=== PATIENT | female | born 1975 | race American Indian/Alaskan Native ===

== ENCOUNTER 2016-03-14 16:46 | Inpatient (IN) | payer MEDICAID ==
[2016-03-14] MEDS ORDERED: TYLENOL PO PRN (16:52)
[2016-03-14] MEDS ORDERED: DEEP SEA NS PRN (16:52)
[2016-03-14] MEDS ORDERED: AMBIEN PO PRN (16:52)
[2016-03-14] MEDS ORDERED: MILK OF MAGNESIA PO PRN (16:52)
[2016-03-14] MEDS ORDERED: ROBITUSSIN DM PO PRN (16:52)
[2016-03-14] MEDS ORDERED: TUCKS PAD TP PRN (16:52)
[2016-03-14] MEDS ORDERED: BENADRYL PO PRN (16:52)
[2016-03-14] MEDS ORDERED: MYLICON PO PRN (16:52)
[2016-03-14] MEDS ORDERED: ALUM-MAG HYDROX-SIMETH 200-200-20MG/5ML PO PRN (16:52)
[2016-03-14] MEDS ORDERED: COLACE PO PRN (16:52)
[2016-03-14] MEDS ORDERED: ZOFRAN IV PRN (16:52)
--- NOTE | 2016-03-14 17:05 | History and Physical Report ---
History of Present Illness Date of examination: 03/14/16 Date of admission: 03/14/16 16:46 Chief complaint: direct admit from office: pt was seen at [facility] 03/09 and found to have a short cervix (1.5cm) without funnelling. u/s in our office today shows funnelling and CL of 0.5cms. History of present illness: EDC Confirmation: 07/30/2016 Gestational Age: 8 2/7 weeks Past History : 5 Term Births: 2 Premature Births: 0 Living Children: 2 Para: 2 Mult. Births: 0 Aborta: 2 Elect. Ab: 1 Spont. Ab: 1 # 1 Delivery date: 1994 Weeks Gestation: 40 Delivery type: Infant Sex: Male Comments: bed rest, cervical dilation # 2 Delivery date: 1997 Weeks Gestation: 42 Delivery type: Infant Sex: Male Comments: Bed rest, previa that resolved # 3 Delivery date: 1993 Delivery type: SAB Comments: D&C # 4 Delivery date: 2000 Delivery type: EAB Comments: septic, required hospitilaztion 2 weeks after Past Medical History: PID - 17 years ago 1998 -pt states admitted to hospital for 2 weeks d/t chlamydia and received "40 bags of penicillin" Norplant placed 1995 - never removed. Septic 2000 - required hospitization Anemia HTN Anxiety Peripheral Neuropathy - hand and leg numbness - dx 12/[address] 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 of genital herpes: no Partner hx. of genital herpes: no Rash, Viral, or Febrile illness since last LMP? no Varicella/Chicken Pox Status: Previous Disease TB Risk: no Infection History Comments: HX of gc/ch, PID Genetic History ADVANCED MATERNAL AGE Congenital Heart Defect: Mom: no Dad: no Mar Disease: Mom: no Dad: no Thalassemia Mom: no Dad: no Neural Tube Defect Mom: no Dad: no Down's Syndrome Mom: no Dad: no Eduardo-Sachs Mom: no Dad: no Sickle Cell Disease/Trait Mom: yes Dad: unknown Comments: pt + SST, FOc never been tested Hemophilia Mom: no Dad: no Muscular Dystrophy Mom: no Dad: no Cystic Fibrosis Mom: no Dad: no Darin Chorea Mom: no Dad: no Mental Retardation Mom: no Dad: no Fragile X Mom: no Dad: no Other Genetic/Chromosomal Disorder Mom: no Dad: no Child w/other defect Mom: no Dad: no Enviromental Exposures Xray Exposure: no Medication, drug, or alcohol use since LMP: no Chemical/Other Exposure: no Exposure to Cat Liter: no Hx of Parvovirus (Fifth Disease): no Occupational Exposure to Children: none Current Allergies (reviewed today): No known allergies Past History - Obstetrical History Expected Date of Delivery: 07/30/16 Actual Gestation: 20 Week(s) 2 Day(s) : 5 Para: 2 Hx # Term Pregnancies: 2 Number of Pregnancies: 0 Spontaneous Abortions: 1 Induced : 1 Number of Living Children: 2 Medications and Allergies Allergies Allergy/AdvReac Type Severity Reaction Status Date / Time No Known Allergies Allergy Verified 01/26/16 14:41 Home Medications Medication Instructions Recorded Confirmed Last Taken Type Vit No.130/Iron/FA 1 each PO DAILY #30 tablet 12/16/15 Unknown Rx [ Tablet] Acetaminophen [Tylenol] 1,000 mg PO Q8HR #20 tablet 01/26/16 Unknown Rx Ondansetron [Zofran TAB] 4 mg PO Q8HR PRN #14 tablet 01/26/16 Unknown Rx Active Meds: Active Medications Acetaminophen (Tylenol) 650 mg PO Q4H PRN PRN Reason: Pain MILD(1-3)/Fever >100.5/BISHOP Al Hydrox/Mg Hydrox/Simethicone (Alum-Mag Hydrox-Simeth [id number]/5ml) 30 ml PO Q6H PRN PRN Reason: Indigestion Diphenhydramine HCl (Benadryl) 25 mg PO Q6H PRN PRN Reason: Itching Docusate Sodium (Colace) 100 mg PO Q12H PRN PRN Reason: Constipation Guaifenesin (Robitussin Dm) 10 ml PO Q6H PRN PRN Reason: Cough Magnesium Hydroxide (Milk Of Magnesia) 30 ml PO QHS PRN PRN Reason: Laxative Effect Multivitamins/Iron/Calcium ( Vitamin) 1 each PO QDAY SHAUNNA Ondansetron HCl (Zofran) 4 mg IV Q6H PRN PRN Reason: Nausea And Vomiting Simethicone (Mylicon) 80 mg PO Q6H PRN PRN Reason: Gas pain Sodium Chloride (Deep Sea) 2 spray NS Q4H PRN PRN Reason: Congestion Witch Gabriela/Glycerin (Tucks Pad) 1 each TP PRN PRN PRN Reason: Hemorrhoids Zolpidem Tartrate (Ambien) 10 mg PO ONCE PRN PRN Reason: Sleep Review of Systems All systems: negative - Physical Exam Breasts: Positive: normal Cardiovascular: Regular rate Lungs: Positive: Clear to auscultation, Normal air movement Abdomen: Positive: normal appearance, soft, normal bowel sounds Genitourinary (Female): Positive: normal external genitalia, normal perenium Vulva: both: normal Vagina: Positive: normal moisture Cervix: Positive: other (u/s exam showed funnelling and CL of 0.5cms) Uterus: Positive: normal size Adnexa: both: normal Extremities: Positive: normal - Obstetrical FHR: auscultation normal Results All other labs normal. Laboratory Data-Patient Name: FRITZ MARTINEZ Test Date Result Blood Type 01/18/2016 O Rh 01/18/2016 Positive Antibody Screen Negatiev Rubella 01/18/2016 Immune Serology (RPR) 01/18/2016 Non-reactive HBsAg 01/18/2016 Negative Hemoglobin 01/18/2016 11.9 Hematocrit 01/18/2016 36.8 Platelets 01/18/2016 251 [id number] Chlamydia DNA 12/21/2015 Negative GC DNA/Culture 12/21/2015 Urine Culture 01/18/2016 Final report Group B Strep cult not done at this time PAP 12/21/2015 Normal, Satisfactory, No endocervical cells HIV 01/18/2016 AFP/Quad Screen 02/15/2016 Glucola Test 3hr GTT (Fasting) 1 hr 2 hr 3 hr [facility]-Patient Name:FRITZ MARTINEZ Test Date Result Varicella Ab Sickle Cell 01/18/2016 Negative PPD Fibronectin Cystic Fibrosis Parvovirus TSH Free T4 Hepatitis C ALT 02/17/2016 16 AST 02/17/2016 17 Uric Acid Creatinine 02/17/2016 0.62 24 hr Urine Protein LAZARO Assessment and Plan 40y/o @ 20w2d with cervical shortening and funnelling, plan for repeat u/ s for CL and funnelling, AMFM consult ordered for AM along with NICU consult. Plan for bed rest with bathroom privileges only. Plan of care developed with Dr. Hernandez. - Patient Problems (1) 20 weeks gestation of Current Visit: Yes Status: Acute (2) Advanced maternal age (AMA) in Current Visit: Yes Status: Acute (3) Cervical funneling affecting in second trimester Current Visit: Yes Status: Acute (4) HTN in , chronic Current Visit: Yes Status: Acute (5) Obesity affecting in second trimester Current Visit: Yes Status: Acute (6) Short cervix during in second trimester Current Visit: Yes Status: Acute
--- NOTE | 2016-03-14 18:14 | Event Note ---
Date: 03/14/16 Pt admitted for observation due to have cervical change on sonogram in office from last week's visit with MFM. Cx now 0.5cm with funneling noted on sono. As per provider in the office, pt did admit to having the vaginal progesterone that was recommended last wee. Pt will get repeat sono once admitted for comparison and MFM consultation as [facility] Will await further recommendations at this time.
--- NOTE | 2016-03-14 19:04 | Event Note ---
Date: 03/14/[address] Augustin and it was noted that the residual cl was 0.6 in the office on Saturday03/09/16 and not 1.5cm. The measurement today was0.5cm in our office which is stable. Based upon this, we will monitor pt overnight and repeat CL in the am and if no change will plan for d/c home on vaginal progesterone as recommended by MFM. Pt is aware of plan of care and all questions were addressed and answered.
--- NOTE | 2016-03-15 09:04 | Progress Note ---
Assessment and Plan A: 1. IUP at 20 5/7 weeks gestation 2. Cervical shortening 3. Chronic HTN, not on medication 4. AMA (negative cell free DNA screen) 5. Obesity Recommendations For repeat TVUS to assess cervical length, consider outpatient expectant management if stable Continue vaginal progesterone qhs until 36 weeks gestation Continue to monitor her BP, no indication for antihypertensive therapy Next [facility] appt is 03/19/2016 at 100pm Subjective - Subjective Date of service: 03/15/16 Principal diagnosis: IUP at 20 5/7 , Cervical shortening Interval history: She denies increased pressure, bleeding, cramping or LOF Objective - Vital Signs Vital Signs: Vital Signs - 12hr 03/14/16 03/14/16 03/14/16 20:58 23:00 23:05 Temperature 98.1 F Pulse Rate 90 Pulse Rate [ From Monitor] Respiratory 20 22 Rate Blood Pressure 109/59 Blood Pressure [Right Arm] 03/15/16 03/15/16 08:07 08:08 Temperature 97.8 F Pulse Rate 86 Pulse Rate [ 86 From Monitor] Respiratory 18 Rate Blood Pressure 117/61 Blood Pressure 117/61 [Right Arm] - Exam Narrative Exam: laying in bed Abdomen: Present: normal appearance, soft (non tender no palpable contractions ) Uterine Contraction Monitor Mode: External (no contractions) Extremities: normal (no c/c/e)
[2016-03-15] MEDS: PRENATAL VITAMIN PO SCH (09:51)
--- NOTE | 2016-03-15 13:08 | Ultrasound Report ---
The limited OB ultrasound: There is a lees intrauterine gestation in cephalic position with a heart rate of 152 beats per minute. The cervical length is 5 mm. There appears to be a soft tissue mass measuring 2.3 cm in the dilated cervical canal just superior to the closed portion. No other information obtained.
--- NOTE | 2016-03-15 13:55 | Progress Note ---
Assessment and Plan - Patient Problems (1) 20 weeks gestation of Current Visit: Yes Status: Acute Plan to address problem: M Recommendations: For repeat TVUS to assess cervical length, consider outpatient expectant management if stable Continue vaginal progesterone qhs until 36 weeks gestation Continue to monitor her BP, no indication for antihypertensive therapy Next [facility] appt is 03/19/2016 at 100pm (2) Advanced maternal age (AMA) in Current Visit: Yes Status: Acute (3) Cervical funneling affecting in second trimester Current Visit: Yes Status: Acute Plan to address problem: She will continue vaginal progesterone qhs (4) HTN in , chronic Current Visit: Yes Status: Acute (5) Obesity affecting in second trimester Current Visit: Yes Status: Acute (6) Short cervix during in second trimester Current Visit: Yes Status: Acute Plan to address problem: Patient desires to remain hospitalized for bedrest. [facility] recommendations extensively reviewed with patient. She was informed that bed rest runs a risk of increasing her morbidity possible mortality due to increased risk for development of DVTs or pulmonary embolism especially with her body mass index and . Also explained potential risk of prolonged hospitalization. Patient is adamant that she should remain on bed rest. Patient does not work. She was informed that it is her option to remain on bed rest however bed rest in the hospital is no different than bedrest at home. She was offered a second opinion with another perinatologist. Subjective - Subjective Date of service: 03/15/16 Principal diagnosis: IUP at 20 5/7 , Cervical shortening Patient reports: no new complaints, no loss of fluid, no vaginal bleeding, no contractions Objective - Vital Signs Vital Signs: Vital Signs - 12hr 03/15/16 03/15/16 03/15/16 08:07 08:08 11:30 Temperature 97.8 F 98.5 F Pulse Rate 86 99 H Pulse Rate [ 86 99 H From Monitor] Respiratory 18 18 Rate Blood Pressure 117/61 111/56 Blood Pressure 117/61 111/56 [Right Arm] - Exam Breasts: deferred Lungs: Clear to auscultation Abdomen: Present: normal appearance, soft - Results US- obstetric: report reviewed
[2016-03-15] MEDS ORDERED: REGLAN PO PRN (22:57)
--- NOTE | 2016-03-16 08:51 | Progress Note ---
Assessment and Plan Patient resting without complaints, plan of care discussed including d/c home for the risks discussed by Dr. Coronel. Patient states she would agree to go home after another CL performed today showed no change. Dr. sams consulted , u/s ordered. - Patient Problems (1) 20 weeks gestation of Current Visit: Yes Status: Acute (2) Advanced maternal age (AMA) in Current Visit: Yes Status: Acute (3) Cervical funneling affecting in second trimester Current Visit: Yes Status: Acute Plan to address problem: repeat u/s this morning for CL (4) HTN in , chronic Current Visit: Yes Status: Acute Plan to address problem: VSS, no indication for antihypertensive medication at this time Will continue to monitor. (5) Obesity affecting in second trimester Current Visit: Yes Status: Acute (6) Short cervix during in second trimester Current Visit: Yes Status: Acute Subjective - Subjective Date of service: 03/16/16 Principal diagnosis: IUP at 20 6/7 , Cervical shortening Interval history: EDC Confirmation: 07/30/2016 Gestational Age: 8 2/7 weeks Past History : 5 Term Births: 2 Premature Births: 0 Living Children: 2 Para: 2 Mult. Births: 0 Aborta: 2 Elect. Ab: 1 Spont. Ab: 1 # 1 Delivery date: 1994 Weeks Gestation: 40 Delivery type: Infant Sex: Male Comments: bed rest, cervical dilation # 2 Delivery date: 1997 Weeks Gestation: 42 Delivery type: Sex: Male Comments: Bed rest, previa that resolved # 3 Delivery date: 1993 Delivery type: SAB Comments: D&C # 4 Delivery date: 2000 Delivery type: EAB Comments: septic, required hospitilaztion 2 weeks after Past Medical History: PID - 17 years ago 1998 -pt states admitted to hospital for 2 weeks d/t chlamydia and received "40 bags of penicillin" Norplant placed 1995 - never removed. Septic 2000 - required hospitization Anemia HTN Anxiety Peripheral Neuropathy - hand and leg numbness - dx 12/[address] 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 of genital herpes: no Partner hx. of genital herpes: no Rash, Viral, or Febrile illness since last LMP? no Varicella/Chicken Pox Status: Previous Disease TB Risk: no Infection History Comments: HX of gc/ch, PID Genetic History ADVANCED MATERNAL AGE Congenital Heart Defect: Mom: no Dad: no Mar Disease: Mom: no Dad: no Thalassemia Mom: no Dad: no Neural Tube Defect Mom: no Dad: no Down's Syndrome Mom: no Dad: no Eduardo-Sachs Mom: no Dad: no Sickle Cell Disease/Trait Mom: yes Dad: unknown Comments: pt + SST, FOc never been tested Hemophilia Mom: no Dad: no Muscular Dystrophy Mom: no Dad: no Cystic Fibrosis Mom: no Dad: no [place] Chorea Mom: no Dad: no Mental Retardation Mom: no Dad: no Fragile X Mom: no Dad: no Other Genetic/Chromosomal Disorder Mom: no Dad: no Child w/other defect Mom: no Dad: no Enviromental Exposures Xray Exposure: no Medication, drug, or alcohol use since LMP: no Chemical/Other Exposure: no Exposure to Cat Liter: no Hx of Parvovirus (Fifth Disease): no Occupational Exposure to Children: none Current Allergies (reviewed today): No known allergies Patient reports: movement normal, no new complaints, no loss of fluid, no vaginal bleeding, no contractions Objective - Vital Signs Vital Signs: Vital Signs - 12hr 03/15/16 03/16/16 23:11 08:31 Pulse Rate 94 H 82 Blood Pressure 118/58 104/57 - Exam Breasts: normal Cardiovascular: Regular rate Lungs: Clear to auscultation, Normal air movement Abdomen: Present: normal appearance, soft Vulva: both: normal Uterus: Present: normal Uterine Contraction Monitor Mode: External Uterine Contraction Pattern: Absent Uterine Tone Measurement Phase: Resting Extremities: normal Deep Tendon Reflex Grade: Normal +2
[2016-03-16] MEDS: PRENATAL VITAMIN PO SCH (10:00)
--- NOTE | 2016-03-16 15:39 | Discharge Summary ---
[id number] 03/16/16 Attending physician: AMAN WEI 03/14/16 16:52 Consult to Physician [CONS] Routine Consulting Provider: MARINE MEIER Reason For Exam: Short cervix w/ funneling Place consult to:: [facility]FM Notified:: Phone number called:: [phone] Was contact made?: Yes If yes, spoke with:: 03/14/16 16:57 Consult to Physician [CONS] Routine Consulting Provider: RAIN BELLO Reason For Exam: Short cervix with funnelling Place consult to:: NICU consult Notified:: CALEB Phone number called:: [phone] Was contact made?: Yes If yes, spoke with:: CALEB Time called:: 17:35 Comment:: . Primary care physician: AMAN WEI Hospitalization Hospital course: Please see H&P for details. She was admitted with the diagnoses of shortened cervix and cervical funneling. Patient was placed on bed rest and risks with sterile ultrasounds exam did not show significant worsening. Patient had long conversation with both our practice and a [facility] about the benefits of in-hospital observation versus at-home observations and increased risks of infection with hospital stay. Patient also informed that there was no benefit of vitamin Hospital delivery at this gestational age. All patient's questions were answered. Patient's anxiousness and concern suspected. Patient has a follow-up appointment with a [facility] on March 19. Disposition: DISCHARGED TO HOME OR SELFCARE - Discharge Diagnoses (1) 20 weeks gestation of Status: Acute (2) Advanced maternal age (AMA) in Status: Acute (3) Cervical funneling affecting in second trimester Status: Acute (4) HTN in , chronic Status: Acute (5) Obesity affecting in second trimester Status: Acute (6) Short cervix during in second trimester Status: Acute Core Measure Documentation - Palliative Care Palliative Care/ Comfort Measures: Not Applicable - Core Measures Any of the following diagnoses?: none Exam - Constitutional Vitals: Temp Pulse Resp BP Pulse Ox 97.5 F L 86 20 109/55 03/16/16 08:30 03/16/16 12:16 03/16/16 08:30 03/16/16 12:16 General appearance: Present: no acute distress - Respiratory Respiratory effort: normal - Cardiovascular Rhythm: regular - Extremities Extremities: no ischemia Extremity abnormal: edema - Abdominal General gastrointestinal: Present: soft, non-tender Female genitourinary: Present: deferred - Rectal Rectal Exam: deferred - Integumentary Integumentary: Present: clear, warm, dry - Psychiatric Psychiatric: appropriate mood/affect Plan Activity: other (bed rest) Diet: regular Additional Instructions: Patient follow-up with [place] [facility] on March 19 and to schedule appointment within a week at our office Follow up with: AMAN WEI MD [Primary Care Provider] - 7 Days Forms: [facility] Discharge Summary
[2016-03-16 15:49] VITALS: BP 100/56
--- NOTE | 2016-03-16 16:30 | Ultrasound Report ---
Limited OB ultrasound: Endovaginal and transabdominal imaging utilized. A lees gestation in cephalic position with a heart rate of 161 beats per minute is present. There is funneling of the cervix with an internal diameter of approximately 3.5 cm and a mid diameter of 2.5 cm. The closed cervical length is approximately 3.3 mm. The EDC for this patient is 07/30/16.
== END 2016-03-16 17:00 | disposition home or self-care (01) | DRG 781 ==
LOC: LD 16:46
PROVIDERS: ADMIT Obstetrics & Gynecology; ATTEND Obstetrics & Gynecology
DX: O34.32 Maternal care for cervical incompetence, second trimester (principal); O16.2 Unspecified maternal hypertension, second trimester; O99.212 Obesity complicating pregnancy, second trimester; O26.872 Cervical shortening, second trimester; O09.522 Supervision of elderly multigravida, second trimester; Z3A.20 20 weeks gestation of pregnancy; Z68.41 Body mass index [BMI] 40.0-44.9, adult; Z83.3 Family history of diabetes mellitus; Z82.49 Family history of ischemic heart disease and other diseases of the circulatory system; Z80.3 Family history of malignant neoplasm of breast; Z80.42 Family history of malignant neoplasm of prostate
CPT/HCPCS: 76815; 76817

== ENCOUNTER 2016-03-23 11:38 | Outpatient (CLI) | payer MEDICAID ==
[2016-03-23] MEDS ORDERED: LACTATED RINGERS 500 ML IV ONE (13:00)
--- NOTE | 2016-03-23 13:52 | Event Note ---
Date: 03/23/16 Dr. Hernandez consulted, CL is unchanged since last measurement at hospital 1 week ago. Plan for d/c home on continued bedrest. pt has appointment 03/27/16 in the [place] office with Dr. Cuadra 03/27/16 @11am.
--- NOTE | 2016-03-23 14:30 | Ultrasound Report ---
OB LIMITED History: labor. Technique: Transabdominal ultrasound with Doppler interrogation. Gestation: Single Position: Breech Heart Rate: 163 BPM Cervical length: 0.5 cm (Normal > 3 cm)
== END 2016-03-23 14:22 | disposition home or self-care (01) ==
LOC: TRG 11:38
PROVIDERS: ATTEND Obstetrics & Gynecology
DX: O32.1XX0 Maternal care for breech presentation, not applicable or unspecified (principal); Z3A.00 Weeks of gestation of pregnancy not specified
CPT/HCPCS: 76815

== ENCOUNTER → 2017-03-22 | Outpatient (CLI) | payer MEDICAID | LOC: SLR 11:00 | PROVIDERS: ATTEND Otolaryngology | DX: G47.30 Sleep apnea, unspecified (principal); I10 Essential (primary) hypertension | CPT/HCPCS: 95810 ==

== ENCOUNTER 2017-03-29 11:00 | Outpatient (CLI) | payer MEDICAID | END 2017-03-29 11:01 | disposition home or self-care (01) | LOC: SLR 11:00 | PROVIDERS: ATTEND Otolaryngology | DX: G47.33 Obstructive sleep apnea (adult) (pediatric) (principal) | CPT/HCPCS: 95811 ==